=== PATIENT | male | born 1990 | race African-American/Black ===

== ENCOUNTER 2021-02-13 23:37 | Emergency (ER) | payer SELFPAY ==
[~2021-02-13] VITALS: Ht 167.6 cm; Wt 59.0 kg
[2021-02-13 23:40] VITALS: BP 122/84
== END 2021-02-13 23:55 | disposition left against medical advice (07) ==
LOC: ER 23:37
DX: Z53.21 Procedure and treatment not carried out due to patient leaving prior to being seen by health care provider (principal)

== ENCOUNTER 2021-03-18 18:43 | Emergency (ER) | payer SELFPAY ==
[~2021-03-18] VITALS: Ht 165.1 cm; Wt 59.0 kg
[2021-03-18] MEDS ORDERED: KETOROLAC 60MG/2ML VIAL IM ONE (19:15)
[2021-03-18] MEDS ORDERED: CEPHALEXIN 250MG CAPSULE PO ONE (19:30)
[2021-03-18 19:51] VITALS: BP 132/78
== END 2021-03-18 19:52 | disposition home or self-care (01) ==
LOC: ER 19:39
DX: L03.115 Cellulitis of right lower limb (principal)
CPT/HCPCS: 96372; 99283; J1885